=== PATIENT | female | born 1975 | race Caucasian/White ===

== ENCOUNTER 2016-11-10 16:47 | Inpatient (IN) | payer MEDICARE ==
[~2016-11-10] VITALS: Ht 154.9 cm; Wt 107.3 kg
--- NOTE | ~2016-11-10 | CON ---
[place], [place] REPORT OF CONSULTATION NAME: ZAKIA SWANSON UNIT #: [id number] ROOM: 503 DOCTOR: ALESSANDRO TAMAYO MD BIRTHDATE: [birth year] DOS: 11/14/2016 PULMONARY CONSULTATION EVALUATION AND MANAGEMENT REASON FOR CONSULTATION: Assess the patient for ongoing acute respiratory complaints. HISTORY OF PRESENT ILLNESS: This is a 41-year-old white female known to me with past history of uncomplicated severe persistent bronchial asthma, presented to the Emergency Room. The patient developed initially acute sore throat for the patient with shortness of breath occurring for the past couple of weeks. She has been assessed by the primary care physician and has been treated with amoxicillin and tapering dose of prednisone and failed to respond to the treatment. Symptoms have worsened significantly with onset of fever as well. The chest congestion of the patient has been noted to be progressively worse with nonproductive cough. She has been noted with symptoms of increased shortness of breath occurring with [id number] exertion as well as chest tightness and wheezing. She denies symptoms of hemoptysis. Denies symptoms of acute chest pain. REVIEW OF SYSTEMS: CONSTITUTIONAL SYMPTOMS: Fatigue and tiredness noted without symptoms of fever or chills. EYES: Denies any burning, redness, or tenderness. NECK, EARS, NOSE, THROAT SYMPTOMS: Denies sore throat, hoarseness, otalgia, postnasal drainage or epistaxis. CARDIOVASCULAR SYSTEM: Denies anginal pain, edema or pain of the lower extremities. GASTROINTESTINAL SYMPTOMS: Denies nausea, vomiting, diarrhea, abdominal pain, hematemesis, melena, or dysphagia. GENITOURINARY SYMPTOMS: No dysuria, suprapubic pain, hematuria. MUSCULOSKELETAL SYMPTOMS: History of cerebral palsy without any acute muscular problem for this patient was noted with pain. There was no joint pain. CENTRAL NERVOUS SYSTEM: History of cerebral palsy. The patient noted without symptoms of dizziness, headache or seizures. SKIN: Denies lesions or rashes. Remaining systems were reviewed with the patient and they were noted all negative. PAST MEDICAL HISTORY: 1. Uncomplicated severe persistent bronchial asthma under my treatment. 2. History of chronic severe obesity. 3. History of cerebral palsy with spastic paresis since . 4. History of stress incontinence. 5. History of chronic arthritis. 6. Gastroesophageal reflux. 7. Hypothyroidism. 8. Anxiety disorder and depression. 9. History of nephrolithiasis. [place], [place] REPORT OF CONSULTATION NAME: ZAKIA SWANSON UNIT #: [id number] ROOM: [facility] DOCTOR: ALESSANDRO TAMAYO MD BIRTHDATE: [birth year] PAST SURGICAL HISTORY: 1. Surgery of the neck in a patient with a history of cerebral palsy. 2. T and A. 3. Ablation of the cervix. 4. Tubal ligation. 5. . 6. Fiber bronchoscopy of the patient that was done for this patient on 01/28/2016. SOCIAL HISTORY: The patient is , has 2 children, nonsmoker lifetime. Denies any alcohol or illicit drug use. FAMILY HISTORY: Father is living, 57 years old without any known medical illnesses. Mother is also living without any known medical illnesses. MEDICATIONS: Current administered medications noted use of Myrbetriq, folic acid, Dulera, IV Solu-Medrol 40 mg b.i.d., Singulair, metoprolol tartrate, Lexapro, Wellbutrin, Lovenox for DVT prophylaxis, Synthroid 137 mcg daily, DuoNeb, Levaquin, and other p.r.n. medications administration. DRUG ALLERGY HISTORY: She was noted with no known drug allergies. PHYSICAL EXAMINATION: GENERAL: A 41-year-old female who has been currently noted without any acute distress, sitting on a bed. Height of 5 feet 1 inch, weight of 236 pounds, BMI 44.7. VITAL SIGNS: Shows normal temperature of the patient in the last 72 hours since admission, respiratory rate recorded between 16 to 20, heart rate of 56 to 68, blood pressure 150/82 to 170/86 in the past 12 hours. The pulse oxygen saturation of the patient recorded on room air to 2 liters nasal cannula is 93% to 97% saturation. HEENT: Chronic obesity. Head was atraumatic. Eyes anicteric. NECK: Supple. Oral mucosa moist. CARDIOVASCULAR SYSTEM: S1, S2 audible. LUNGS: Diffuse expiratory wheezing noted moderately without any crackles. ABDOMEN: Soft, obese, nontender. CENTRAL NERVOUS SYSTEM: History of cerebral palsy of the patient, but there were no gross focal neurologic deficits. Cranial nerves 2-12 intact. SKIN: No lesions or rashes. MUSCULOSKELETAL SYSTEM: No gross deformities. LABORATORY DATA: The patient's CBC on 11/02/2016 on admission was noted with a normal CBC for this patient. The lactic acid on 11/10/2016 is 2.6, a little elevated and followup lactic acid of the patient noted 2.4 on 11/10/2016. CMP of the patient that was done on 11/10/2016 of the patient shows BUN 12, creatinine 1.32, AST 41. Remaining LFTs were normal. CK-MB and troponin noted elevation of CPK at 368 with MB of 4.7 of the patient. The troponin of the patient remains normal. The CPK for this patient MB were elevated for the patient later on as well for additional 2 sets for this patient on a similar [place], [place] REPORT OF CONSULTATION NAME: ZAKIA SWANSON UNIT #: [id number] ROOM: [facility] DO[facility] [birth year] range for this patient on 11/11/2016. BMP repeated for the patient on 11/11/2016 shows BUN 11, creatinine 1.06, glucose 159. Blood culture, which were done on 11/10/2016 for the patient showed no bacterial growth. Urine culture reported no bacterial growth for the patient in final results taken on admission. BMP was noted completely normal for this patient this morning except potassium mildly decreased at 3.2. CBC this morning shows a normal CBC. The chest x-ray that was done for the patient was reviewed for this patient on admission of the patient shows no acute pulmonary infiltration, small area of atelectasis in the left lower lobe. Repeat chest x-ray of the patient was done 3 times for this patient shows more prominent infiltration in the left lower lobe consistent with acute pneumonia would be considered. IMPRESSION: 1. The patient who has been admitted to the hospital at this time and being managed for acute bacterial pneumonia, non-aspiration, most likely secondary to positive cocci of the patient in the left lower lobe with ongoing acute exacerbation of uncomplicated severe persistent bronchial asthma with only partial improvement occurred. 2. Chronic obesity with history of cerebral palsy as well. 3. History of gastroesophageal reflux. 4. Elevation in CPK, most likely related to current acute pulmonary ____ for this patient has been considered. 5. Mild acute kidney secondary to acute sepsis. 6. Acute sepsis as well secondary to acute bacterial pneumonia. PLAN OF TREATMENT: The patient will continued on Solu-Medrol, bronchodilator, antibiotic does not require to be changed. Mucinex will be added to the treatment of the patient to help mobilize secretions, use of flutter valve to help mobilize secretions. Bronchoscopy planned to be done in the morning for further assessment of the patient's nonresolving cough for the past 3 days since hospitalization. I will also obtain PA and lateral chest x-ray of the patient this morning to assess the progression of the current pneumonia for this patient and infiltration. All other supportive plan of management to be continued with use of the bronchodilators as well and other treatment plan of management. Supportive therapy, plan of management and other care. The kidney function of the patient has been noted normal at this time and no new intervention will be needed. [place], [place] REPORT OF CONSULTATION NAME: ZAKIA SWANSON UNIT #: [id number] ROOM: [facility] DOCTOR: ALESSANDRO TAMAYO MD BIRTHDATE: [birth year] ALESSANDRO MANSFIELD MD CM:CONSTR:REPORT OF CONSULTATION 1215 11/15/16 [id number] interface
--- NOTE | ~2016-11-10 | PROC NOTE ---
[place], [place] PROCEDURE NOTE NAME: ZAKIA SWANSON UNIT #: [id number] ROOM: 503 DOCTOR: SHYLA ANGUIANO MD,ALESSANDRO BIRTHDATE: [birth year] DOS: 11/15/2016 PROCEDURE: Bronchoscopy. PREOPERATIVE DIAGNOSES: Severe nonproductive cough for the patient with wheezing with history of bronchial asthma exacerbation with persistent respiratory symptoms nonresolving with current maximum medical therapy. POSTOPERATIVE DIAGNOSES: Removal of multiple plugs and mucus from the airways bilaterally. PROCEDURE DESCRIPTION: Informed consent obtained for the patient. The patient brought to the OR and placed in the supine position. Conscious sedation administered by the Anesthesia Department. After achieving appropriate sedation, airway introduced into the mouth. Bronchoscope advanced into the airway into laryngeal area. Epiglottis and vocal cords were seen. The vocal cord was noted yellowish in color moving symmetrically with movement. The bronchoscope advanced into the airway into laryngeal area. The epiglottis and vocal cords were seen. Bronchoscope advanced to the vocal cords of the patient without any difficulty. The trachea was noted with moderate amount of thick mucus secretions. The bronchoscope advanced to the vocal cord and tracheal lumen. All the secretions suctioned out from tracheal lumen. The ladonna was noted sharp. Right upper, right middle, right lower, left upper, lingular lower lobe bronchi were all examined. The bronchoscope advanced into all of the endobronchial subsegments of the patient bilaterally without any difficulty. All the secretions suctioned out with help of normal saline wash. Mucus plugs for the patient, which has been noted in the endobronchial tree, which were suctioned out with the help of normal saline wash without any difficulty. There were no endobronchial lesions noted. Postoperative findings were discussed with the patient's family members and the patient in detail after completion of the procedure. No changes in treatment at this time will be necessary. ALESSANDRO MANSFIELD MD CM:PROCNOTE:PROCEDURE NOTE [id number] ALESSANDRO ANGUIANO MD
--- NOTE | ~2016-11-10 | PR ---
[place], [place] PROGRESS NOTE NAME: ZAKIA SWANSON UNIT #: [id number] ROOM: 503 DOCTOR: SHYLA ANGUIANO MD,ALESSANDRO BIRTHDATE: [birth year] DOS: 11/15/2016 SUBJECTIVE: The patient seen and examined on 11/15/2016. She has been noted with similar symptoms of coughing and wheezing and shortness of breath. She is n.p.o. past midnight for bronchoscopy, which is planned for today. Denies symptoms of chest pain or any abdominal pain. OBJECTIVE: VITAL SIGNS: The morning vital signs for the patient shows a normal temperature, the respiratory rate of 20, heart rate of 60, blood pressure 183/93 to 152/92. HEENT: Examination shows no new change. NECK: Supple. CARDIOVASCULAR SYSTEM: S1, S2 audible. LUNGS: Moderate decreased breath sounds. The patient noted with moderate expiratory wheezing, no crackles. ABDOMEN: Soft, nontender. LABORATORY DATA: Creatinine on this morning was noted normal. IMPRESSION: Acute tracheobronchitis and exacerbation of chronic obstructive pulmonary disease, suspected, mucus impaction, history of chronic spastic paresis and cerebral palsy. PLAN OF TREATMENT: No changes in plan of management at this time. Continue the patient's current therapy as in progress. Further treatment changes will be done based on the progression of the illness. ALESSANDRO MANSFIELD MD CM:PNTRANS [phone] ALESSANDRO ANGUIANO MD 11/15/16 1010 interface
--- NOTE | ~2016-11-10 | PR ---
[place], [place] PROGRESS NOTE NAME: ZAKIA SWANSON UNIT #: [id number] ROOM: 503 DOCTOR: SHYLA ANGUIANO MD,ALESSANDRO BIRTHDATE: [birth year] DOS: 11/15/2016 PULMONARY FOLLOWUP SUBJECTIVE: She has been noted awake and alert at this time. The bronchoscopy done yesterday with reduction of respiratory symptom, coughing, wheezing, and shortness breath. Denies symptoms of chest pain, abdominal pain. OBJECTIVE: VITAL SIGNS: For the patient which have been recorded showed normal temperature, respiratory rate 20, heart rate of 50-56, blood pressure 150/76 this morning. The pulse oxygen saturation noted on 2 L nasal cannula was 90% saturation. HEENT: Examination shows head was atraumatic. Eyes nonicterus. NECK: Supple. CARDIOVASCULAR: S1, S2 audible. LUNGS: Show no crackles or rhonchi. Expiratory wheezing noted scattered in the lungs. ABDOMEN: Soft, nontender. Bowel sounds present. LABORATORY DATA: The gram stain in the bronchial washings show a few white blood cells, few epithelial cells, rare gram-positive cocci in pairs. Preliminary culture results for the patient was pending at this time. IMPRESSION: The patient with reduction and improvement in the respiratory symptoms after bronchoscopy for acute exacerbation of chronic obstructive pulmonary disease and acute exacerbation of bronchial asthma and tracheobronchitis significantly. The culture of the patient was pending for the bronchial washings. PLAN OF TREATMENT: Continue current dose of steroids. No changes need to be done. Consider for possible discharge of the patient in the morning on oral medications. Other supportive therapy, plan of management to be continued. Usual care. ALESSANDRO MANSFIELD MD CM:PNTRANS [phone] ALESSANDRO ANGUIANO MD 11/16/1656 interface
[~2016-11-10 16:47] MED LIST: 'XANAX1 MG PO; ADVAIR 250/501 EA INH; BACTRIM DS 8001 TA1 PO; CLARITIN10 MG PO; DARVOCET N 1001 TAB PO; DELTASONE20 M1 PO; DETROL LA4 MG PO; DEXILANT60 MG PO; DUONEB 3 MG/3 ML3 M1 INH; FUROSEMIDE40 MG PO; HYDROCODONE BIT1 T20 PO; IRON325 M1 PO; LEVAQUIN750 M1 PO; LEVOFLOXACIN500 MG PO; LEVOTHYROXIN0.125 M1 PO; LEVOTHYROXINE0.1 MG PO; LISINOPRIL5 MG PO; LOPRESSOR25 MG PO; Lopressor25 MG PO; MONTELUKAST SOD10 MG PO; MOTRIN800 MG PO; MUCINEX ER600 MG PO; NORCO 7.5-3251 EACH PO; OMEPRAZOLE DR20 MG PO; PERCOCET 325 MG1 TA2 PO; PREDNISONE10 MG PO; PRILOSEC20 M2 PO; PRILOSEC40 MG PO; PYRIDIUM200 M1 PO; SEPTRA DS 800 M1 TAB PO; TOPROL XL25 MG PO; VICODIN ES 7501 TA1 PO; XANAX XR1 MG PO; XANAX0.5 MG PO; ZITHROMAX250 MG PO
[2016-11-10 16:52] VITALS: BP 147/87
[2016-11-10] MEDS ORDERED: SUNMARK OMEPRAZ20 M1 PO (16:56)
[2016-11-10] MEDS ORDERED: MYRBETRIQ25 M1 PO (16:56)
[2016-11-10] MEDS ORDERED: METOPROLOL25 MG PO (16:57)
[2016-11-10] MEDS ORDERED: VICO75300 PO (16:57)
[2016-11-10] MEDS ORDERED: SYNTHROID0.137 MG PO (16:57)
[2016-11-10] MEDS ORDERED: MONTELUKAST SOD10 MG PO (16:58)
[2016-11-10] MEDS ORDERED: PROAIR HFA8.5 GM INH (16:58)
[2016-11-10] MEDS ORDERED: ADVAIR HFA 230/1 AER INH (16:58)
[2016-11-10] MEDS ORDERED: LEXAPRO20 MG PO (16:59)
[2016-11-10] MEDS ORDERED: XANAX1 MG PO (16:59)
[2016-11-10] MEDS ORDERED: WELLBUTRIN SR150 MG PO (16:59)
[2016-11-10 17:30] LABS: BASO # 0.1 10*3/uL (0.0-0.1); BASO % 0.9 % (0.0-1.0); EOS % 0.4 % (1.0-4.0); HEMATOCRIT 42.5 % (37.0-47.0); HEMOGLOBIN 14.7 g/dl (12.0-16.0); LYMPH # 0.7 10*3/uL (1.3-4.4); LYMPH % 12.9 % (27.0-41.0); MEAN CELL VOLUME 95.5 fl (81.0-99.0); MEAN CORPUSCULAR HGB CONC 34.6 g/dl (33.0-37.0); MEAN PLATELET VOLUME 9.5 fl (9.6-12.3); MONO # 0.6 10*3/uL (0.1-1.0); MONO % 10.2 % (3.0-9.0); NEUT # 4.2 10*3/uL (2.3-7.9); NEUT % 75.2 % (47.0-73.0); PLATELET COUNT AUTOMATED 298 10*3/uL (130-400); RED BLOOD COUNT 4.45 10*6/uL (4.10-5.10); RED CELL DISTRI WIDTH 13.3 % (0-14.5); WHITE BLOOD COUNT 5.6 10*3/uL (4.8-10.8)
[2016-11-10 17:47] LABS: ALKALINE PHOSPHATASE 76 U/L (45-117); BILIRUBIN, TOTAL 0.4 mg/dl (0.2-1.0); BUN 12 mg/dl (7-24); CARBON DIOXIDE 25 mmol/L (21-32); CHLORIDE 101 mmol/L (98-107); EST GLOM FILT AFRICAN AMERICAN 54 ml/min; GLUCOSE 96 mg/dL (65-99); SGOT/AST 41 IU/L (3-35); SGPT/ALT 46 U/L (12-78); SODIUM 140 mmol/L (136-145); TOTAL PROTEIN 7.8 gm/dL (6.4-8.2)
[2016-11-10 17:49] LABS: TROPONIN I < 0.015 ng/ml (<0.045)
[2016-11-10 19:26] LABS: LA>2 REFLEX 2 HR DRAW NOW
[2016-11-10 20:00] LABS: BILIRUBIN NEGATIVE (NEGATIVE); BLOOD 1+ (NEGATIVE); CLARITY CLOUDY (CLEAR); COLOR YELLOW (YELLOW); GLUCOSE NEGATIVE (NEGATIVE); KETONE NEGATIVE (NEGATIVE); LEUKO ESTERASE NEGATIVE (NEGATIVE); NITRITE NEGATIVE (NEGATIVE); PROTEIN 1+ (NEGATIVE); SPECIFIC GRAVITY 1.025 (1.005-1.030)
[2016-11-10 20:05] VITALS: BP 148/80
[2016-11-10 20:07] LABS: BACTERIA 2+; EPITHELIAL CELLS 20-25; URINE REFLEX COMMENT YES (NO); WBC 0-2 wbc/hpf (0-5)
[2016-11-10 21:38] LABS: LA>2 REFLEX 4 HR DRAW NOW
[2016-11-11] VITALS: BP 151/76
[2016-11-11 00:27] LABS: CKMB 4.7 ng/ml (0.5-3.6); CPK 368 U/L (26-192)
[2016-11-11 00:48] LABS: TROPONIN I < 0.015 ng/ml (<0.045)
[2016-11-11 04:00] VITALS: BP 118/63
[2016-11-11 06:29] LABS: HEMATOCRIT 38.4 % (37.0-47.0); LYMPH # 0.4 10*3/uL (1.3-4.4); LYMPH % 12.1 % (27.0-41.0); MEAN CELL VOLUME 97.2 fl (81.0-99.0); MEAN CORPUSCULAR HGB 32.9 pg (27.0-31.0); MEAN CORPUSCULAR HGB CONC 33.9 g/dl (33.0-37.0); MEAN PLATELET VOLUME 9.6 fl (9.6-12.3); MONO # 0.1 10*3/uL (0.1-1.0); MONO % 4.7 % (3.0-9.0); NEUT # 2.5 10*3/uL (2.3-7.9); NEUT % 82.9 % (47.0-73.0); PLATELET COUNT AUTOMATED 269 10*3/uL (130-400); RED BLOOD COUNT 3.95 10*6/uL (4.10-5.10); RED CELL DISTRI WIDTH 13.5 % (0-14.5)
[2016-11-11 06:45] LABS: CPK 290 U/L (26-192)
[2016-11-11 06:46] LABS: TROPONIN I < 0.015 ng/ml (<0.045)
[2016-11-11 06:49] LABS: HEMOGLOBIN A1c 4.7 % (4.8-5.6)
[2016-11-11 07:06] LABS: BUN 11 mg/dl (7-24); CARBON DIOXIDE 22 mmol/L (21-32); CHLORIDE 105 mmol/L (98-107); CHOLESTEROL 155 mg/dL (<200); EST GLOM FILT AFRICAN AMERICAN > 60 ml/min; GLUCOSE 159 mg/dL (65-99); HDL CHOLESTEROL 35 mg/dl (40-60); LDL CHOLESTEROL 79 mg/dL (9-159); POTASSIUM 3.9 mmol/L (3.5-5.1); SODIUM 140 mmol/L (136-145); TRIGLYCERIDES 207 mg/dl (<150); VLDL CHOLESTEROL 41 mg/dL (6-40)
[2016-11-11 07:12] LABS: THYROID STIM HORMONE (HS) 0.783 uIU/ml (0.358-4.75)
[2016-11-11 07:25] LABS: PROTHROMBIN TIME 10.8 SECONDS (9.0-12.4)
[2016-11-11 07:27] LABS: FOLIC ACID 3.63 ng/mL (>5.38)
[2016-11-11 08:00] VITALS: BP 152/87
[2016-11-11 12:00] VITALS: BP 141/82
[2016-11-11 12:31] LABS: CPK 268 U/L (26-192); TROPONIN I < 0.015 ng/ml (<0.045)
[2016-11-11 12:33] LABS: CKMB 5.1 ng/ml (0.5-3.6)
[2016-11-11 16:00] VITALS: BP 134/79
[2016-11-11 20:00] VITALS: BP 127/66
[2016-11-12] VITALS: BP 132/63
[2016-11-12 08:00] VITALS: BP 160/90
[2016-11-12 12:00] VITALS: BP 147/82
[2016-11-12 16:00] VITALS: BP 154/92
[2016-11-12 20:00] VITALS: BP 135/82
[2016-11-13] VITALS: BP 154/82
[2016-11-13 08:00] VITALS: BP 171/89
[2016-11-13 12:00] VITALS: BP 124/70
[2016-11-13 16:00] VITALS: BP 160/92; BP 162/80
[2016-11-13 20:00] VITALS: BP 170/82
[2016-11-14] VITALS: BP 178/86; BP 183/90
[2016-11-14 06:07] LABS: HEMATOCRIT 40.7 % (37.0-47.0); HEMOGLOBIN 13.4 g/dl (12.0-16.0); MEAN CELL VOLUME 98.1 fl (81.0-99.0); MEAN CORPUSCULAR HGB 32.3 pg (27.0-31.0); MEAN CORPUSCULAR HGB CONC 32.9 g/dl (33.0-37.0); MEAN PLATELET VOLUME 9.8 fl (9.6-12.3); PLATELET COUNT AUTOMATED 288 10*3/uL (130-400); RED BLOOD COUNT 4.15 10*6/uL (4.10-5.10); RED CELL DISTRI WIDTH 13.2 % (0-14.5); WHITE BLOOD COUNT 8.1 10*3/uL (4.8-10.8)
[2016-11-14 06:25] LABS: BUN 13 mg/dl (7-24); CARBON DIOXIDE 30 mmol/L (21-32); CHLORIDE 102 mmol/L (98-107); EST GLOM FILT AFRICAN AMERICAN > 60 ml/min; GLUCOSE 98 mg/dL (65-99); POTASSIUM 3.2 mmol/L (3.5-5.1); SODIUM 143 mmol/L (136-145)
[2016-11-14 07:42] LABS: ATYPICAL LYMPHS 9 % (0-0); LYMPHOCYTE # 1.9 10*3/uL (1.3-4.4); MONOCYTE # 0.6 10*3/uL (0.1-1.0); NEUTROPHIL # 5.6 10*3/uL (2.3-7.9); NEUTROPHILS 69 % (47-73); PLATELET SUFFICIENCY NORMAL (NORMAL); TOTAL CELLS COUNTED 100 #CELLS
[2016-11-14 08:00] VITALS: BP 158/82
[2016-11-14 12:00] VITALS: BP 156/78
[2016-11-14 14:00] VITALS: BP 148/71
[2016-11-14 20:00] VITALS: BP 150/79
[2016-11-15] VITALS (7 sets, daily range): BP systolic 99–186; BP diastolic 54–93
[2016-11-15 06:10] LABS: EST GLOM FILT AFRICAN AMERICAN > 60 ml/min
[2016-11-16] VITALS: BP 132/75
[2016-11-16 08:00] VITALS: BP 150/76
[2016-11-16 12:00] VITALS: BP 132/78
[2016-11-16] MEDS ORDERED: LEVAQUIN750 M1 PO (13:54)
[2016-11-16] MEDS ORDERED: NYSTATIN100000 U/M PO (13:54)
[2016-11-16] MEDS ORDERED: PREDNISONE10 MG PO (13:54)
[2016-11-16] MEDS ORDERED: NATURE'S BLEND F1 MG PO (13:54)
[2016-11-16 14:07] LABS: ACID FAST SPEC PROCESSING Concentration (.)
== END 2016-11-16 14:39 | disposition home or self-care (01) | DRG 871 ==
LOC: ED 16:47 → EDHOLD 18:13 → 5E 18:13
PROVIDERS: Internal Medicine; Internal Medicine Critical Care Medicine; Registered Nurse
PROC: 0BC98ZZ Extirpation of Matter from Lingula Bronchus, Via Natural or Artificial Opening Endoscopic (ICD-10-PCS; principal; 2016-11-15)
PROC: 0BC48ZZ Extirpation of Matter from Right Upper Lobe Bronchus, Via Natural or Artificial Opening Endoscopic (ICD-10-PCS; principal; 2016-11-15)
PROC: 0BCB8ZZ Extirpation of Matter from Left Lower Lobe Bronchus, Via Natural or Artificial Opening Endoscopic (ICD-10-PCS; principal; 2016-11-15)
PROC: 0BC28ZZ Extirpation of Matter from Carina, Via Natural or Artificial Opening Endoscopic (ICD-10-PCS; principal; 2016-11-15)
PROC: 0BC68ZZ Extirpation of Matter from Right Lower Lobe Bronchus, Via Natural or Artificial Opening Endoscopic (ICD-10-PCS; principal; 2016-11-15)
PROC: 0BC88ZZ Extirpation of Matter from Left Upper Lobe Bronchus, Via Natural or Artificial Opening Endoscopic (ICD-10-PCS; principal; 2016-11-15)
PROC: 0BC58ZZ Extirpation of Matter from Right Middle Lobe Bronchus, Via Natural or Artificial Opening Endoscopic (ICD-10-PCS; principal; 2016-11-15)
DX: A41.9 Sepsis, unspecified organism (principal); N17.0 Acute kidney failure with tubular necrosis; J96.01 Acute respiratory failure with hypoxia; J15.9 Unspecified bacterial pneumonia; E87.2 Acidosis; J44.1 Chronic obstructive pulmonary disease with (acute) exacerbation; J44.0 Chronic obstructive pulmonary disease with (acute) lower respiratory infection; Z68.41 Body mass index [BMI] 40.0-44.9, adult; E66.01 Morbid (severe) obesity due to excess calories; G80.9 Cerebral palsy, unspecified; F41.9 Anxiety disorder, unspecified; E03.9 Hypothyroidism, unspecified; E78.5 Hyperlipidemia, unspecified; R73.9 Hyperglycemia, unspecified; J20.9 Acute bronchitis, unspecified; K21.9 Gastro-esophageal reflux disease without esophagitis; F32.9 Major depressive disorder, single episode, unspecified; M19.90 Unspecified osteoarthritis, unspecified site; Z98.51 Tubal ligation status; Z82.61 Family history of arthritis; Z82.0 Family history of epilepsy and other diseases of the nervous system; Z88.8 Allergy status to other drugs, medicaments and biological substances; Z79.1 Long term (current) use of non-steroidal anti-inflammatories (NSAID); Z79.51 Long term (current) use of inhaled steroids; Z79.899 Other long term (current) drug therapy

== ENCOUNTER 2017-04-29 00:16 | Emergency (ER) | payer MEDICARE ==
[~2017-04-29] VITALS: Ht 154.9 cm; Wt 108.9 kg
[~2017-04-29 00:16] MED LIST changes: +ADVAIR HFA 230/1 AER INH; +LEXAPRO20 MG PO; +METOPROLOL25 MG PO; +MYRBETRIQ25 M1 PO; +NATURE'S BLEND F1 MG PO; +NYSTATIN100000 U/M PO; +PROAIR HFA8.5 GM INH; +SUNMARK OMEPRAZ20 M1 PO; +SYNTHROID0.137 MG PO; +VICO75300 PO; +WELLBUTRIN SR150 MG PO; +XANAX1 MG PO
[2017-04-29 00:20] VITALS: BP 172/94
[2017-04-29 00:33] LABS: BILIRUBIN 1+ (NEGATIVE); BLOOD 3+ (NEGATIVE); CLARITY CLOUDY (CLEAR); COLOR YELLOW (YELLOW); GLUCOSE NEGATIVE (NEGATIVE); KETONE NEGATIVE (NEGATIVE); LEUKO ESTERASE 2+ (NEGATIVE); NITRITE POSITIVE (NEGATIVE); SPECIFIC GRAVITY 1.025 (1.005-1.030)
[2017-04-29 00:51] LABS: BACTERIA 3+; EPITHELIAL CELLS TNTC; RBC TNTC rbc/hpf (0-2); WBC 41-50 wbc/hpf (0-5)
== END 2017-04-29 01:43 | disposition home or self-care (01) ==
LOC: ED 00:16
PROVIDERS: Nurse Practitioner Family
DX: N39.0 Urinary tract infection, site not specified (principal); E03.9 Hypothyroidism, unspecified; Z91.011 Allergy to milk products; Z91.018 Allergy to other foods; Z79.899 Other long term (current) drug therapy

== ENCOUNTER → 2017-05-15 | Outpatient (CLI) | payer MEDICARE ==
[2017-05-15 12:28] LABS: BILIRUBIN NEGATIVE (NEGATIVE); BLOOD 1+ (NEGATIVE); CLARITY SL CLOUDY (CLEAR); COLOR YELLOW (YELLOW); GLUCOSE NEGATIVE (NEGATIVE); KETONE NEGATIVE (NEGATIVE); LEUKO ESTERASE NEGATIVE (NEGATIVE); NITRITE NEGATIVE (NEGATIVE); SPECIFIC GRAVITY 1.025 (1.005-1.030); UROBILINOGEN 0.2 E.U./dl (0.2-1.0)
[2017-05-15 12:43] LABS: BACTERIA TRACE; WBC 16-20 wbc/hpf (0-5)
[2017-05-15 13:01] LABS: ALBUMIN 3.6 gm/dl (3.1-4.5); ALKALINE PHOSPHATASE 66 U/L (45-117); BUN 18 mg/dl (7-24); CHLORIDE 108 mmol/L (98-107); CREATININE 1.16 mg/dL (0.55-1.02); POTASSIUM 4.1 mmol/L (3.5-5.1); SGOT/AST 18 IU/L (3-35); SGPT/ALT 25 U/L (12-78); SODIUM 141 mmol/L (136-145); T3 UPTAKE 33 % (31-39); THYROXINE (T4) TOTAL 10.2 ug/dl (4.8-13.9); TOTAL PROTEIN 6.9 gm/dL (6.4-8.2)
== END | disposition home or self-care (01) ==
LOC: LAB 11:41
PROVIDERS: Urology
DX: N20.0 Calculus of kidney (principal); R94.6 Abnormal results of thyroid function studies

== ENCOUNTER → 2017-05-20 | Outpatient (CLI) | payer MEDICARE | END | disposition home or self-care (01) | LOC: LAB 17:04 | PROVIDERS: Family Medicine | DX: N20.0 Calculus of kidney (principal) ==

== ENCOUNTER 2017-07-22 19:42 | Emergency (ER) | payer MEDICARE ==
[~2017-07-22] VITALS: Ht 154.9 cm; Wt 90.7 kg
[2017-07-22 20:20] VITALS: BP 174/88
[2017-07-22 20:34] LABS: BILIRUBIN NEGATIVE (NEGATIVE); BLOOD 3+ (NEGATIVE); CLARITY CLOUDY (CLEAR); COLOR RED (YELLOW); GLUCOSE NEGATIVE (NEGATIVE); KETONE NEGATIVE (NEGATIVE); NITRITE POSITIVE (NEGATIVE)
[2017-07-22 20:51] LABS: LEUKO ESTERASE 2+ (NEGATIVE); RBC TNTC rbc/hpf (0-2)
[2017-07-22] MEDS ORDERED: AMINOPHYLLIN200 MG PO (21:43)
[2017-07-22] MEDS ORDERED: PYRIDIUM200 M1 PO (21:43)
== END 2017-07-22 21:56 | disposition home or self-care (01) ==
LOC: ED 19:42
PROVIDERS: Physician Assistant
DX: N39.0 Urinary tract infection, site not specified (principal); R31.9 Hematuria, unspecified; Z91.02 Food additives allergy status; Z79.899 Other long term (current) drug therapy

== ENCOUNTER 2017-10-21 19:16 | Emergency (ER) | payer MEDICARE ==
[~2017-10-21] VITALS: Ht 154.9 cm; Wt 112.5 kg
[~2017-10-21 19:16] MED LIST changes: +AMINOPHYLLIN200 MG PO
[2017-10-21 19:22] VITALS: BP 161/104
[2017-10-21 19:40] LABS: BILIRUBIN NEGATIVE (NEGATIVE); BLOOD 3+ (NEGATIVE); CLARITY CLOUDY (CLEAR); COLOR YELLOW (YELLOW); GLUCOSE NEGATIVE (NEGATIVE); KETONE NEGATIVE (NEGATIVE); LEUKO ESTERASE TRACE (NEGATIVE); NITRITE NEGATIVE (NEGATIVE); PH 6.5 (5.0-9.0); SPECIFIC GRAVITY 1.015 (1.005-1.030); UROBILINOGEN 0.2 E.U./dl (0.2-1.0)
[2017-10-21 19:48] LABS: BACTERIA 2+; EPITHELIAL CELLS TNTC; MUCOUS TRACE; WBC 0-2 wbc/hpf (0-5)
[2017-10-21 20:52] LABS: BASO # 0.1 10*3/uL (0.0-0.1); BASO % 0.6 % (0.0-1.0); EOS # 0.2 10*3/uL (0.0-0.4); EOS % 2.7 % (1.0-4.0); HEMATOCRIT 39.7 % (37.0-47.0); HEMOGLOBIN 13.5 g/dl (12.0-16.0); LYMPH # 2.1 10*3/uL (1.3-4.4); LYMPH % 25.3 % (27.0-41.0); MEAN CELL VOLUME 96.8 fl (81.0-99.0); MEAN CORPUSCULAR HGB 32.9 pg (27.0-31.0); MEAN PLATELET VOLUME 9.6 fl (9.6-12.3); MONO # 0.5 10*3/uL (0.1-1.0); MONO % 6.4 % (3.0-9.0); NEUT # 5.4 10*3/uL (2.3-7.9); NEUT % 64.9 % (47.0-73.0); PLATELET COUNT AUTOMATED 339 10*3/uL (130-400); RED CELL DISTRI WIDTH 12.8 % (0-14.5); WHITE BLOOD COUNT 8.4 10*3/uL (4.8-10.8)
[2017-10-21 21:06] LABS: ALBUMIN 3.9 gm/dl (3.1-4.5); ALKALINE PHOSPHATASE 71 U/L (45-117); BUN 10 mg/dl (7-24); CHLORIDE 104 mmol/L (98-107); CREATININE 1.11 mg/dL (0.55-1.02); SGOT/AST 23 IU/L (3-35); SGPT/ALT 32 U/L (12-78); SODIUM 139 mmol/L (136-145); TOTAL PROTEIN 7.1 gm/dL (6.4-8.2)
[2017-10-21] MEDS ORDERED: AMINOPHYLLIN200 MG PO (22:56)
== END 2017-10-21 23:13 | disposition home or self-care (01) ==
LOC: ED 19:16
PROVIDERS: Physician Assistant
DX: N39.0 Urinary tract infection, site not specified (principal); M54.5 Low back pain; Z88.8 Allergy status to other drugs, medicaments and biological substances

== ENCOUNTER → 2017-11-12 | Outpatient (CLI) | payer MEDICARE ==
[2017-11-12 15:42] LABS: BASO # 0.1 10*3/uL (0.0-0.1); BASO % 0.6 % (0.0-1.0); EOS # 0.3 10*3/uL (0.0-0.4); EOS % 3.1 % (1.0-4.0); HEMATOCRIT 40.9 % (37.0-47.0); HEMOGLOBIN 13.9 g/dl (12.0-16.0); LYMPH # 3.5 10*3/uL (1.3-4.4); LYMPH % 32.5 % (27.0-41.0); MEAN CELL VOLUME 97.1 fl (81.0-99.0); MEAN PLATELET VOLUME 9.6 fl (9.6-12.3); MONO # 0.9 10*3/uL (0.1-1.0); MONO % 8.1 % (3.0-9.0); NEUT % 55.4 % (47.0-73.0); PLATELET COUNT AUTOMATED 295 10*3/uL (130-400); RED BLOOD COUNT 4.21 10*6/uL (4.10-5.10); RED CELL DISTRI WIDTH 12.9 % (0-14.5); WHITE BLOOD COUNT 10.8 10*3/uL (4.8-10.8)
[2017-11-12 15:47] LABS: BILIRUBIN NEGATIVE (NEGATIVE); BLOOD NEGATIVE (NEGATIVE); CLARITY SL CLOUDY (CLEAR); COLOR YELLOW (YELLOW); GLUCOSE NEGATIVE (NEGATIVE); KETONE NEGATIVE (NEGATIVE); LEUKO ESTERASE NEGATIVE (NEGATIVE); NITRITE NEGATIVE (NEGATIVE); PH 6.5 (5.0-9.0); UROBILINOGEN 0.2 E.U./dl (0.2-1.0)
[2017-11-12 16:05] LABS: ALBUMIN 3.9 gm/dl (3.1-4.5); ALKALINE PHOSPHATASE 71 U/L (45-117); BUN 13 mg/dl (7-24); CHLORIDE 104 mmol/L (98-107); CREATININE 1.16 mg/dL (0.55-1.02); POTASSIUM 3.5 mmol/L (3.5-5.1); SGOT/AST 24 IU/L (3-35); SGPT/ALT 33 U/L (12-78); SODIUM 138 mmol/L (136-145); T3 UPTAKE 33 % (31-39); THYROXINE (T4) TOTAL 8.3 ug/dl (4.8-13.9); TOTAL PROTEIN 7.5 gm/dL (6.4-8.2)
[2017-11-12 16:09] LABS: BACTERIA 2+
== END | disposition home or self-care (01) ==
LOC: US 10-25 13:00 → LAB 14:59 → US 15:00
PROVIDERS: Urology
DX: N83.201 Unspecified ovarian cyst, right side (principal); N20.0 Calculus of kidney; Z79.899 Other long term (current) drug therapy

== ENCOUNTER 2018-06-08 15:26 | Inpatient (IN) | payer MEDICARE ==
[~2018-06-08] VITALS: Ht 154.9 cm; Wt 108.1 kg
--- NOTE | ~2018-06-08 | EKG ---
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
[~2018-06-08 15:26] MED LIST changes: -SYNTHROID0.137 MG PO; +Synthroid,Lev150 MCG PO
[2018-06-08 15:28] VITALS: BP 198/105
[2018-06-08 16:18] LABS: BILIRUBIN 2+ (NEGATIVE); BLOOD 3+ (NEGATIVE); CLARITY CLOUDY (CLEAR); COLOR YELLOW (YELLOW); GLUCOSE TRACE (NEGATIVE); KETONE TRACE (NEGATIVE); LEUKO ESTERASE 2+ (NEGATIVE); NITRITE POSITIVE (NEGATIVE); PH 6.5 (5.0-9.0); SPECIFIC GRAVITY 1.025 (1.005-1.030)
[2018-06-08 16:25] LABS: RBC TNTC rbc/hpf (0-2)
[2018-06-08 16:33] LABS: BASO # 0.1 10*3/uL (0.0-0.1); BASO % 0.7 % (0.0-1.0); EOS # 0.2 10*3/uL (0.0-0.4); EOS % 2.6 % (1.0-4.0); HEMOGLOBIN 13.6 g/dl (12.0-16.0); LYMPH # 1.3 10*3/uL (1.3-4.4); LYMPH % 18.8 % (27.0-41.0); MEAN CELL VOLUME 97.3 fl (81.0-99.0); MEAN CORPUSCULAR HGB 33.1 pg (27.0-31.0); MEAN PLATELET VOLUME 9.4 fl (9.6-12.3); MONO # 0.5 10*3/uL (0.1-1.0); MONO % 7.1 % (3.0-9.0); NEUT # 4.8 10*3/uL (2.3-7.9); NEUT % 70.7 % (47.0-73.0); PLATELET COUNT AUTOMATED 311 10*3/uL (130-400); RED BLOOD COUNT 4.11 10*6/uL (4.10-5.10); RED CELL DISTRI WIDTH 13.3 % (0-14.5); WHITE BLOOD COUNT 6.8 10*3/uL (4.8-10.8)
[2018-06-08 16:44] LABS: ACT PARTIAL THROMBO TIME 24.3 SECONDS (20.8-31.5)
[2018-06-08 16:49] LABS: ALBUMIN 3.5 gm/dl (3.1-4.5); ALKALINE PHOSPHATASE 102 U/L (45-117); BETA-HCG, QUANT < 1.0 mIU/mL (1-3); BUN 9 mg/dl (7-24); CHLORIDE 106 mmol/L (98-107); CREATININE 1.09 mg/dL (0.55-1.02); LIPASE 56 U/L (73-393); POTASSIUM 3.5 mmol/L (3.5-5.1); SGOT/AST 35 IU/L (3-35); SGPT/ALT 38 U/L (12-78); SODIUM 141 mmol/L (136-145); TOTAL PROTEIN 6.9 gm/dL (6.4-8.2); TROPONIN I < 0.015 ng/ml (<0.045)
[2018-06-08 18:55] VITALS: BP 160/75
[2018-06-08 20:00] VITALS: BP 161/75
[2018-06-09] VITALS: BP 137/74
[2018-06-09 06:34] LABS: BASO # 0.1 10*3/uL (0.0-0.1); BASO % 0.6 % (0.0-1.0); EOS # 0.3 10*3/uL (0.0-0.4); HEMATOCRIT 37.4 % (37.0-47.0); HEMOGLOBIN 12.4 g/dl (12.0-16.0); LYMPH # 2.2 10*3/uL (1.3-4.4); LYMPH % 26.4 % (27.0-41.0); MEAN CELL VOLUME 98.9 fl (81.0-99.0); MEAN CORPUSCULAR HGB 32.8 pg (27.0-31.0); MEAN CORPUSCULAR HGB CONC 33.2 g/dl (33.0-37.0); MEAN PLATELET VOLUME 9.9 fl (9.6-12.3); MONO # 0.7 10*3/uL (0.1-1.0); MONO % 7.7 % (3.0-9.0); NEUT # 5.2 10*3/uL (2.3-7.9); NEUT % 62.1 % (47.0-73.0); PLATELET COUNT AUTOMATED 286 10*3/uL (130-400); RED BLOOD COUNT 3.78 10*6/uL (4.10-5.10); RED CELL DISTRI WIDTH 13.4 % (0-14.5); WHITE BLOOD COUNT 8.4 10*3/uL (4.8-10.8)
[2018-06-09 07:13] LABS: ALBUMIN 3.2 gm/dl (3.1-4.5); BUN 11 mg/dl (7-24); CHLORIDE 106 mmol/L (98-107); CHOLESTEROL 160 mg/dL (<200); CREATININE 1.12 mg/dL (0.55-1.02); PHOSPHOROUS 3.1 mg/dL (2.5-4.9); POTASSIUM 3.5 mmol/L (3.5-5.1); SGOT/AST 27 IU/L (3-35); SGPT/ALT 34 U/L (12-78); SODIUM 142 mmol/L (136-145); TOTAL PROTEIN 6.2 gm/dL (6.4-8.2); TRIGLYCERIDES 204 mg/dl (<150); VLDL CHOLESTEROL 41 mg/dL (6-40)
[2018-06-09 07:20] LABS: ALKALINE PHOSPHATASE 89 U/L (45-117); FREE T4 1.06 ng/dl (0.76-1.46); HDL CHOLESTEROL 39 mg/dl (40-60); LDL CHOLESTEROL 80 mg/dL (9-159)
[2018-06-09 08:00] VITALS: BP 147/79
[2018-06-09 12:00] VITALS: BP 145/73
[2018-06-09 16:00] VITALS: BP 143/78
[2018-06-09 20:00] VITALS: BP 142/69
[2018-06-10] VITALS: BP 145/69
[2018-06-10 06:30] LABS: BASO # 0.1 10*3/uL (0.0-0.1); BASO % 0.9 % (0.0-1.0); EOS # 0.2 10*3/uL (0.0-0.4); HEMATOCRIT 39.8 % (37.0-47.0); HEMOGLOBIN 13.2 g/dl (12.0-16.0); LYMPH # 2.8 10*3/uL (1.3-4.4); LYMPH % 35.5 % (27.0-41.0); MEAN CELL VOLUME 98.8 fl (81.0-99.0); MEAN CORPUSCULAR HGB 32.8 pg (27.0-31.0); MEAN CORPUSCULAR HGB CONC 33.2 g/dl (33.0-37.0); MEAN PLATELET VOLUME 9.8 fl (9.6-12.3); MONO # 0.6 10*3/uL (0.1-1.0); MONO % 7.5 % (3.0-9.0); NEUT # 4.1 10*3/uL (2.3-7.9); PLATELET COUNT AUTOMATED 343 10*3/uL (130-400); RED BLOOD COUNT 4.03 10*6/uL (4.10-5.10); RED CELL DISTRI WIDTH 13.3 % (0-14.5); WHITE BLOOD COUNT 7.8 10*3/uL (4.8-10.8)
[2018-06-10 06:58] LABS: BUN 10 mg/dl (7-24); CHLORIDE 107 mmol/L (98-107); CREATININE 0.96 mg/dL (0.55-1.02); POTASSIUM 3.5 mmol/L (3.5-5.1); SODIUM 143 mmol/L (136-145)
[2018-06-10 08:00] VITALS: BP 152/87
[2018-06-10 12:00] VITALS: BP 150/85
[2018-06-10 16:00] VITALS: BP 160/90
[2018-06-10 20:00] VITALS: BP 156/85
[2018-06-11] VITALS: BP 139/74; BP 156/85
[2018-06-11 06:08] LABS: BASO # 0.1 10*3/uL (0.0-0.1); BASO % 0.7 % (0.0-1.0); EOS # 0.2 10*3/uL (0.0-0.4); EOS % 2.7 % (1.0-4.0); HEMATOCRIT 38.2 % (37.0-47.0); HEMOGLOBIN 12.5 g/dl (12.0-16.0); LYMPH # 2.8 10*3/uL (1.3-4.4); LYMPH % 32.9 % (27.0-41.0); MEAN CELL VOLUME 100.3 fl (81.0-99.0); MEAN CORPUSCULAR HGB 32.8 pg (27.0-31.0); MEAN CORPUSCULAR HGB CONC 32.7 g/dl (33.0-37.0); MEAN PLATELET VOLUME 9.4 fl (9.6-12.3); MONO # 0.6 10*3/uL (0.1-1.0); MONO % 6.9 % (3.0-9.0); NEUT # 4.8 10*3/uL (2.3-7.9); NEUT % 56.6 % (47.0-73.0); PLATELET COUNT AUTOMATED 312 10*3/uL (130-400); RED BLOOD COUNT 3.81 10*6/uL (4.10-5.10); RED CELL DISTRI WIDTH 13.4 % (0-14.5); WHITE BLOOD COUNT 8.5 10*3/uL (4.8-10.8)
[2018-06-11 06:33] LABS: BUN 12 mg/dl (7-24); CHLORIDE 104 mmol/L (98-107); CREATININE 0.95 mg/dL (0.55-1.02); POTASSIUM 3.5 mmol/L (3.5-5.1); SODIUM 140 mmol/L (136-145)
[2018-06-11 08:00] VITALS: BP 137/66
[2018-06-11 12:00] VITALS: BP 148/84
[2018-06-11 16:00] VITALS: BP 145/82
[2018-06-11 20:00] VITALS: BP 145/69
[2018-06-12] VITALS: BP 144/83
[2018-06-12 06:37] LABS: BUN 14 mg/dl (7-24); CHLORIDE 102 mmol/L (98-107); CREATININE 0.88 mg/dL (0.55-1.02); POTASSIUM 3.7 mmol/L (3.5-5.1); SODIUM 138 mmol/L (136-145)
[2018-06-12 08:00] VITALS: BP 140/74
[2018-06-12 12:00] VITALS: BP 132/68
[2018-06-12 16:00] VITALS: BP 131/62
[2018-06-12 20:00] VITALS: BP 132/73
[2018-06-13] VITALS: BP 132/78
[2018-06-13 06:54] LABS: BASO % 0.6 % (0.0-1.0); EOS # 0.2 10*3/uL (0.0-0.4); EOS % 2.7 % (1.0-4.0); HEMATOCRIT 38.5 % (37.0-47.0); HEMOGLOBIN 12.3 g/dl (12.0-16.0); LYMPH # 2.1 10*3/uL (1.3-4.4); LYMPH % 32.3 % (27.0-41.0); MEAN CORPUSCULAR HGB 32.3 pg (27.0-31.0); MEAN CORPUSCULAR HGB CONC 31.9 g/dl (33.0-37.0); MONO # 0.8 10*3/uL (0.1-1.0); MONO % 11.4 % (3.0-9.0); NEUT # 3.5 10*3/uL (2.3-7.9); NEUT % 52.5 % (47.0-73.0); PLATELET COUNT AUTOMATED 291 10*3/uL (130-400); RED BLOOD COUNT 3.81 10*6/uL (4.10-5.10); RED CELL DISTRI WIDTH 13.7 % (0-14.5); WHITE BLOOD COUNT 6.6 10*3/uL (4.8-10.8)
[2018-06-13 07:19] LABS: BUN 13 mg/dl (7-24); CHLORIDE 104 mmol/L (98-107); CREATININE 0.91 mg/dL (0.55-1.02); SODIUM 141 mmol/L (136-145)
[2018-06-13 08:00] VITALS: BP 129/67
[2018-06-13] MEDS ORDERED: LASIX20 MG PO (11:19)
[2018-06-13] MEDS ORDERED: CIPRO250 MG PO (11:19)
[2018-06-13 12:00] VITALS: BP 136/62
[2018-07-30] MEDS ORDERED: LEVOFLOXACIN500 MG PO (19:22)
[2018-07-30] MEDS ORDERED: PREDNISONE10 MG PO (19:22)
== END 2018-06-13 15:15 | disposition home or self-care (01) | DRG 570 ==
LOC: ED 15:26 → 5E 17:37 → EDHOLD 17:37 → 5E 17:54
PROVIDERS: Emergency Medicine; Family Medicine; Internal Medicine
PROC: 0JBN0ZZ Excision of Right Lower Leg Subcutaneous Tissue and Fascia, Open Approach (ICD-10-PCS; principal; 2018-06-11)
DX: L03.115 Cellulitis of right lower limb (principal); N17.0 Acute kidney failure with tubular necrosis; N39.0 Urinary tract infection, site not specified; I16.1 Hypertensive emergency; E87.2 Acidosis; Z68.41 Body mass index [BMI] 40.0-44.9, adult; I50.32 Chronic diastolic (congestive) heart failure; L97.922 Non-pressure chronic ulcer of unspecified part of left lower leg with fat layer exposed; L97.911 Non-pressure chronic ulcer of unspecified part of right lower leg limited to breakdown of skin; L97.212 Non-pressure chronic ulcer of right calf with fat layer exposed; I13.0 Hypertensive heart and chronic kidney disease with heart failure and stage 1 through stage 4 chronic kidney disease, or unspecified chronic kidney disease; L97.912 Non-pressure chronic ulcer of unspecified part of right lower leg with fat layer exposed; E66.01 Morbid (severe) obesity due to excess calories; R06.09 Other forms of dyspnea; I45.81 Long QT syndrome; R31.9 Hematuria, unspecified; N18.3 Chronic kidney disease, stage 3 (moderate); I16.0 Hypertensive urgency; B96.20 Unspecified Escherichia coli [E. coli] as the cause of diseases classified elsewhere; K76.0 Fatty (change of) liver, not elsewhere classified; G80.9 Cerebral palsy, unspecified; E03.9 Hypothyroidism, unspecified; Z98.891 History of uterine scar from previous surgery; Z82.61 Family history of arthritis; Z82.0 Family history of epilepsy and other diseases of the nervous system; Z91.018 Allergy to other foods; Z82.49 Family history of ischemic heart disease and other diseases of the circulatory system; Z79.51 Long term (current) use of inhaled steroids; Z79.899 Other long term (current) drug therapy; Z88.8 Allergy status to other drugs, medicaments and biological substances

== ENCOUNTER → 2018-06-17 | Outpatient (CLI) | payer MEDICARE ==
[~2018-06-17] MED LIST changes: +CIPRO250 MG PO; +LASIX20 MG PO
== END | disposition home or self-care (01) ==
LOC: WOUNDCARE 03:41
DX: I87.311 Chronic venous hypertension (idiopathic) with ulcer of right lower extremity (principal); L97.218 Non-pressure chronic ulcer of right calf with other specified severity; I11.0 Hypertensive heart disease with heart failure; I50.30 Unspecified diastolic (congestive) heart failure; G80.9 Cerebral palsy, unspecified; E78.5 Hyperlipidemia, unspecified; E03.9 Hypothyroidism, unspecified; E66.01 Morbid (severe) obesity due to excess calories; F41.9 Anxiety disorder, unspecified; Z68.42 Body mass index [BMI] 45.0-49.9, adult

== ENCOUNTER → 2018-06-30 | Outpatient (CLI) | payer MEDICARE | END | disposition home or self-care (01) | LOC: WOUNDCARE 02:28 | DX: I87.311 Chronic venous hypertension (idiopathic) with ulcer of right lower extremity (principal); L97.218 Non-pressure chronic ulcer of right calf with other specified severity; I50.30 Unspecified diastolic (congestive) heart failure; E78.5 Hyperlipidemia, unspecified; E03.9 Hypothyroidism, unspecified; G80.9 Cerebral palsy, unspecified; F41.9 Anxiety disorder, unspecified; E66.01 Morbid (severe) obesity due to excess calories; Z68.42 Body mass index [BMI] 45.0-49.9, adult ==

== ENCOUNTER → 2018-10-23 | Outpatient (CLI) | payer MEDICARE ==
[~2018-10-23] MED LIST changes: +ANUSOL-HC25 MG R; +PYRIDIUM100 MG PO; +SEPTDS PO
== END | disposition home or self-care (01) ==
LOC: US 10-14 10:00
DX: K80.20 Calculus of gallbladder without cholecystitis without obstruction (principal); K76.0 Fatty (change of) liver, not elsewhere classified; R16.0 Hepatomegaly, not elsewhere classified

== ENCOUNTER 2018-11-17 23:10 | Emergency (ER) | payer MEDICARE ==
[~2018-11-17] VITALS: Ht 154.9 cm; Wt 1083.2 kg
[~2018-11-17 23:10] MED LIST changes: -ANUSOL-HC25 MG R; -PYRIDIUM100 MG PO; -SEPTDS PO
[2018-11-18 00:38] LABS: BILIRUBIN NEGATIVE (NEGATIVE); BLOOD 3+ (NEGATIVE); CLARITY CLOUDY (CLEAR); COLOR YELLOW (YELLOW); GLUCOSE NEGATIVE (NEGATIVE); KETONE NEGATIVE (NEGATIVE); LEUKO ESTERASE TRACE (NEGATIVE); NITRITE POSITIVE (NEGATIVE); PH 6.5 (5.0-9.0); SPECIFIC GRAVITY 1.025 (1.005-1.030); UROBILINOGEN 0.2 E.U./dl (0.2-1.0)
[2018-11-18 00:49] LABS: BACTERIA 1+; RBC TNTC rbc/hpf (0-2)
[2018-11-18] MEDS ORDERED: SEPTDS PO (00:59)
[2018-11-18] MEDS ORDERED: ANUSOL-HC25 MG R (00:59)
[2018-11-18] MEDS ORDERED: PYRIDIUM100 MG PO (01:04)
== END 2018-11-18 01:22 | disposition home or self-care (01) ==
LOC: ED 23:10
PROVIDERS: Nurse Practitioner Family
DX: N39.0 Urinary tract infection, site not specified (principal); H66.92 Otitis media, unspecified, left ear; K64.4 Residual hemorrhoidal skin tags; I11.0 Hypertensive heart disease with heart failure; I50.9 Heart failure, unspecified; E66.01 Morbid (severe) obesity due to excess calories; E03.9 Hypothyroidism, unspecified; Z68.41 Body mass index [BMI] 40.0-44.9, adult; Z79.899 Other long term (current) drug therapy

== ENCOUNTER 2019-08-21 15:31 | Emergency (ER) | payer MEDICARE ==
[~2019-08-21] VITALS: Ht 154.9 cm; Wt 99.8 kg
[~2019-08-21 15:31] MED LIST changes: +ANUSOL-HC25 MG R; +PYRIDIUM100 MG PO; +SEPTDS PO
[2019-08-21 15:32] VITALS: BP 169/104
== END 2019-08-21 17:22 | disposition home or self-care (01) ==
LOC: ED 15:31
DX: S50.02XA Contusion of left elbow, initial encounter (principal); Z91.018 Allergy to other foods; Z91.011 Allergy to milk products; Z79.2 Long term (current) use of antibiotics; Z79.899 Other long term (current) drug therapy; X58.XXXA Exposure to other specified factors, initial encounter; Y93.89 Activity, other specified; Y92.89 Other specified places as the place of occurrence of the external cause; Y99.8 Other external cause status

== ENCOUNTER 2019-10-05 13:41 | Emergency (ER) | payer MEDICARE ==
[~2019-10-05] VITALS: Ht 154.9 cm; Wt 104.3 kg
[2019-10-05 17:17] LABS: BASO # 0.1 10*3/uL (0.0-0.1); BASO % 0.6 % (0.0-1.0); EOS # 0.3 10*3/uL (0.0-0.4); EOS % 2.7 % (1.0-4.0); HEMATOCRIT 42.4 % (37.0-47.0); LYMPH # 2.1 10*3/uL (1.3-4.4); MEAN CELL VOLUME 99.1 fl (81.0-99.0); MEAN CORPUSCULAR HGB 32.7 pg (27.0-31.0); MEAN PLATELET VOLUME 9.9 fl (9.6-12.3); MONO # 0.8 10*3/uL (0.1-1.0); MONO % 8.4 % (3.0-9.0); NEUT # 6.1 10*3/uL (2.3-7.9); NEUT % 65.1 % (47.0-73.0); PLATELET COUNT AUTOMATED 313 10*3/uL (130-400); RED BLOOD COUNT 4.28 10*6/uL (4.10-5.10); RED CELL DISTRI WIDTH 13.1 % (0-14.5); WHITE BLOOD COUNT 9.3 10*3/uL (4.8-10.8)
[2019-10-05 17:33] LABS: ALBUMIN 3.9 gm/dl (3.1-4.5); ALKALINE PHOSPHATASE 89 U/L (45-117); BUN 12 mg/dl (7-24); CHLORIDE 105 mmol/L (98-107); CREATININE 1.09 mg/dL (0.55-1.02); LIPASE 67 U/L (73-393); SGOT/AST 31 IU/L (3-35); SGPT/ALT 40 U/L (12-78); SODIUM 138 mmol/L (136-145); TOTAL PROTEIN 7.7 gm/dL (6.4-8.2)
[2019-10-05 17:54] LABS: BILIRUBIN NEGATIVE (NEGATIVE); BLOOD NEGATIVE (NEGATIVE); CLARITY SL CLOUDY (CLEAR); COLOR YELLOW (YELLOW); GLUCOSE NEGATIVE (NEGATIVE); KETONE NEGATIVE (NEGATIVE); PH 7.5 (5.0-9.0); SPECIFIC GRAVITY 1.015 (1.005-1.030)
[2019-10-05 17:55] LABS: EPITHELIAL CELLS 21-30; LEUKO ESTERASE NEGATIVE (NEGATIVE); MUCOUS 1+; NITRITE NEGATIVE (NEGATIVE); UROBILINOGEN 0.2 E.U./dl (0.2-1.0)
[2019-10-05] MEDS ORDERED: TESSALON PERLE100 M1 PO (18:13)
[2019-10-05] MEDS ORDERED: PREDNISONE20 M1 PO (18:13)
[2019-10-05] MEDS ORDERED: DOXYCYCLINE100 M3 PO (18:13)
[2019-10-05] MEDS ORDERED: PROVENTIL HFA6.7 GM INH (18:13)
[2019-10-05 18:17] VITALS: BP 142/72
== END 2019-10-05 18:10 | disposition home or self-care (01) ==
LOC: ED 13:41
PROVIDERS: Physician Assistant
DX: J18.9 Pneumonia, unspecified organism (principal); J45.909 Unspecified asthma, uncomplicated; Z88.8 Allergy status to other drugs, medicaments and biological substances; Z91.011 Allergy to milk products; Z79.2 Long term (current) use of antibiotics; Z79.899 Other long term (current) drug therapy

== ENCOUNTER 2019-11-12 14:51 | Emergency (ER) | payer MEDICARE ==
[~2019-11-12] VITALS: Ht 147.3 cm; Wt 108.9 kg
[~2019-11-12 14:51] MED LIST changes: +DOXYCYCLINE100 M3 PO; +PREDNISONE20 M1 PO; +PROVENTIL HFA6.7 GM INH; +TESSALON PERLE100 M1 PO
[2019-11-12 15:00] VITALS: BP 142/85
[2019-11-12 16:45] LABS: BASO % 0.4 % (0.0-1.0); EOS # 0.1 10*3/uL (0.0-0.4); EOS % 0.8 % (1.0-4.0); HEMATOCRIT 42.2 % (37.0-47.0); HEMOGLOBIN 14.1 g/dl (12.0-16.0); LYMPH # 0.9 10*3/uL (1.3-4.4); LYMPH % 10.8 % (27.0-41.0); MEAN CORPUSCULAR HGB 32.4 pg (27.0-31.0); MEAN CORPUSCULAR HGB CONC 33.4 g/dl (33.0-37.0); MEAN PLATELET VOLUME 9.8 fl (9.6-12.3); MONO # 0.5 10*3/uL (0.1-1.0); MONO % 5.8 % (3.0-9.0); NEUT # 6.4 10*3/uL (2.3-7.9); NEUT % 81.8 % (47.0-73.0); PLATELET COUNT AUTOMATED 286 10*3/uL (130-400); RED BLOOD COUNT 4.35 10*6/uL (4.10-5.10); RED CELL DISTRI WIDTH 12.6 % (0-14.5); WHITE BLOOD COUNT 7.9 10*3/uL (4.8-10.8)
[2019-11-12 16:57] LABS: ACT PARTIAL THROMBO TIME 25.9 SECONDS (20.0-32.1)
[2019-11-12 17:06] LABS: BUN 14 mg/dl (7-24); CHLORIDE 109 mmol/L (98-107); CREATININE 1.04 mg/dL (0.55-1.02); POTASSIUM 4.1 mmol/L (3.5-5.1); SODIUM 142 mmol/L (136-145)
[2019-11-12 17:14] LABS: TROPONIN I < 0.015 ng/ml (<0.045)
[2019-11-12] MEDS ORDERED: PREDNISONE50 MG PO (18:33)
== END 2019-11-12 19:07 | disposition home or self-care (01) ==
LOC: ED 14:51
PROVIDERS: Emergency Medicine
DX: R05 Cough (principal); R06.02 Shortness of breath; M79.89 Other specified soft tissue disorders; E66.01 Morbid (severe) obesity due to excess calories; E03.9 Hypothyroidism, unspecified; I11.0 Hypertensive heart disease with heart failure; I50.30 Unspecified diastolic (congestive) heart failure; J45.909 Unspecified asthma, uncomplicated; Z68.41 Body mass index [BMI] 40.0-44.9, adult; Z88.8 Allergy status to other drugs, medicaments and biological substances; Z79.899 Other long term (current) drug therapy

== ENCOUNTER 2020-02-12 06:33 | Emergency (ER) | payer MEDICARE ==
[~2020-02-12] VITALS: Ht 154.9 cm; Wt 104.3 kg
[~2020-02-12 06:33] MED LIST changes: +PREDNISONE50 MG PO
[2020-02-12 06:59] VITALS: BP 102/57
[2020-02-12 07:15] LABS: HEMATOCRIT 36.3 % (37.0-47.0); MEAN CELL VOLUME 98.9 fl (81.0-99.0); MEAN CORPUSCULAR HGB 33.5 pg (27.0-31.0); MEAN CORPUSCULAR HGB CONC 33.9 g/dl (33.0-37.0); MEAN PLATELET VOLUME 9.4 fl (9.6-12.3); PLATELET COUNT AUTOMATED 418 10*3/uL (130-400); RED BLOOD COUNT 3.67 10*6/uL (4.10-5.10); RED CELL DISTRI WIDTH 12.7 % (0-14.5); WHITE BLOOD COUNT 25.7 10*3/uL (4.8-10.8)
[2020-02-12 07:24] LABS: ACT PARTIAL THROMBO TIME 22.9 SECONDS (20.0-32.1)
[2020-02-12 07:28] LABS: ALBUMIN 3.4 gm/dl (3.1-4.5); ALKALINE PHOSPHATASE 69 U/L (45-117); BUN 13 mg/dl (7-24); CHLORIDE 108 mmol/L (98-107); CREATININE 1.32 mg/dL (0.55-1.02); POTASSIUM 3.9 mmol/L (3.5-5.1); SGOT/AST 22 IU/L (3-35); SGPT/ALT 31 U/L (12-78); SODIUM 138 mmol/L (136-145); TOTAL PROTEIN 6.7 gm/dL (6.4-8.2)
[2020-02-12 07:30] LABS: BETA-HCG, QUANT < 1.0 mIU/mL (1-3)
[2020-02-12 07:34] LABS: TOTAL CELLS COUNTED 100 #CELLS
[2020-02-12 07:35] LABS: PLATELET SUFFICIENCY NORMAL (NORMAL)
[2020-02-12 09:08] LABS: BACTERIA 4+; BILIRUBIN NEGATIVE (NEGATIVE); BLOOD 3+ (NEGATIVE); CLARITY TURBID (CLEAR); COLOR RED (YELLOW); GLUCOSE NEGATIVE (NEGATIVE); KETONE 1+ (NEGATIVE); LEUKO ESTERASE NEGATIVE (NEGATIVE); NITRITE NEGATIVE (NEGATIVE); RBC TNTC rbc/hpf (0-2); UROBILINOGEN 0.2 E.U./dl (0.2-1.0)
[2020-02-12] MEDS ORDERED: PROVERA10 MG PO (09:21)
[2020-02-12] MEDS ORDERED: ZOFRAN4 MG PO (09:24)
== END 2020-02-12 11:45 | disposition home or self-care (01) ==
LOC: ED 06:33
PROVIDERS: Emergency Medicine
DX: N92.0 Excessive and frequent menstruation with regular cycle (principal); S06.0X9A Concussion with loss of consciousness of unspecified duration, initial encounter; F41.9 Anxiety disorder, unspecified; F32.9 Major depressive disorder, single episode, unspecified; J45.909 Unspecified asthma, uncomplicated; Z88.8 Allergy status to other drugs, medicaments and biological substances; Z79.899 Other long term (current) drug therapy; Z79.2 Long term (current) use of antibiotics; X58.XXXA Exposure to other specified factors, initial encounter; Y93.89 Activity, other specified; Y92.89 Other specified places as the place of occurrence of the external cause; Y99.8 Other external cause status

== ENCOUNTER → 2020-06-17 | Outpatient (CLI) | payer MEDICARE | END | disposition home or self-care (01) | LOC: COVID19 00:18 | PROVIDERS: ATTEND Nurse Practitioner Family | DX: R05 Cough (principal); R09.81 Nasal congestion; R53.83 Other fatigue; Z20.828 Contact with and (suspected) exposure to other viral communicable diseases ==

== ENCOUNTER 2020-07-29 16:16 | Emergency (ER) | payer MEDICARE ==
[~2020-07-29] VITALS: Ht 154.9 cm; Wt 106.1 kg
[~2020-07-29 16:16] MED LIST changes: +PROVERA10 MG PO; +ZOFRAN4 MG PO
[2020-07-29 16:46] LABS: BILIRUBIN Negative (Negative); BLOOD Negative (Negative); CLARITY Cloudy (Clear); COLOR Yellow (Yellow); GLUCOSE Negative (Negative); KETONE Negative (Negative); LEUKO ESTERASE 1+ (Negative); NITRITE Negative (Negative); PH 7.5 (4.5-8.0)
[2020-07-29 17:00] LABS: BACTERIA TRACE
[2020-07-29 17:17] VITALS: BP 153/76
[2020-07-29 18:07] LABS: BASO % 0.2 % (0.0-1.0); EOS % 0.5 % (1.0-4.0); HEMATOCRIT 35.1 % (37.0-47.0); LYMPH # 1.2 10*3/uL (1.3-4.4); LYMPH % 26.7 % (27.0-41.0); MEAN CELL VOLUME 84.8 fl (81.0-99.0); MEAN CORPUSCULAR HGB 25.8 pg (27.0-31.0); MEAN CORPUSCULAR HGB CONC 30.5 g/dl (33.0-37.0); MEAN PLATELET VOLUME 9.5 fl (9.6-12.3); MONO # 0.4 10*3/uL (0.1-1.0); MONO % 9.7 % (3.0-9.0); NEUT # 2.7 10*3/uL (2.3-7.9); NEUT % 62.9 % (47.0-73.0); PLATELET COUNT AUTOMATED 319 10*3/uL (130-400); RED BLOOD COUNT 4.14 10*6/uL (4.10-5.10); RED CELL DISTRI WIDTH 15.5 % (0-14.5); WHITE BLOOD COUNT 4.3 10*3/uL (4.8-10.8)
[2020-07-29 18:22] LABS: ALBUMIN 3.5 gm/dl (3.1-4.5); ALKALINE PHOSPHATASE 77 U/L (45-117); BUN 9 mg/dl (7-24); CHLORIDE 105 mmol/L (98-107); CREATININE 0.85 mg/dL (0.55-1.02); POTASSIUM 3.2 mmol/L (3.5-5.1); SGOT/AST 29 IU/L (3-35); SGPT/ALT 26 U/L (12-78); SODIUM 139 mmol/L (136-145); TOTAL PROTEIN 7.3 gm/dL (6.4-8.2)
[2020-07-29] MEDS ORDERED: PREDNISONE20 M1 PO (18:29)
[2020-07-29] MEDS ORDERED: TESSALON PERLE100 MG PO (18:29)
== END 2020-07-29 18:36 | disposition home or self-care (01) ==
LOC: ED 16:16
PROVIDERS: Emergency Medicine
DX: U07.1 COVID-19 (principal); J45.909 Unspecified asthma, uncomplicated; I11.0 Hypertensive heart disease with heart failure; I50.30 Unspecified diastolic (congestive) heart failure; F41.9 Anxiety disorder, unspecified; E03.9 Hypothyroidism, unspecified; Z79.899 Other long term (current) drug therapy

== ENCOUNTER 2020-11-01 10:16 | Observation (INO) | payer MEDICARE ==
[~2020-11-01] VITALS: Ht 167.6 cm; Wt 106.3 kg
[~2020-11-01 10:16] MED LIST changes: +TESSALON PERLE100 MG PO
[2020-11-01 10:22] VITALS: BP 161/74
[2020-11-01 10:56] LABS: BASO # 0.1 10*3/uL (0.0-0.1); BASO % 0.7 % (0.0-1.0); EOS # 0.2 10*3/uL (0.0-0.4); EOS % 2.1 % (1.0-4.0); HEMATOCRIT 36.3 % (37.0-47.0); LYMPH # 2.6 10*3/uL (1.3-4.4); MEAN CELL VOLUME 83.3 fl (81.0-99.0); MEAN CORPUSCULAR HGB 26.8 pg (27.0-31.0); MEAN CORPUSCULAR HGB CONC 32.2 g/dl (33.0-37.0); MEAN PLATELET VOLUME 9.5 fl (9.6-12.3); MONO # 0.9 10*3/uL (0.1-1.0); MONO % 11.3 % (3.0-9.0); NEUT # 4.5 10*3/uL (2.3-7.9); NEUT % 54.8 % (47.0-73.0); PLATELET COUNT AUTOMATED 418 10*3/uL (130-400); RED BLOOD COUNT 4.36 10*6/uL (4.10-5.10); RED CELL DISTRI WIDTH 16.9 % (0-14.5); WHITE BLOOD COUNT 8.2 10*3/uL (4.8-10.8)
[2020-11-01 11:02] VITALS: BP 152/60
[2020-11-01 11:06] LABS: ACT PARTIAL THROMBO TIME 25.9 SECONDS (20.0-32.1)
[2020-11-01 11:12] LABS: ALBUMIN 3.9 gm/dl (3.1-4.5); ALKALINE PHOSPHATASE 70 U/L (45-117); BETA-HCG, QUANT < 1.0 mIU/mL (1-3); BUN 17 mg/dl (7-24); CHLORIDE 109 mmol/L (98-107); CREATININE 1.28 mg/dL (0.55-1.02); LIPASE 92 U/L (73-393); POTASSIUM 3.1 mmol/L (3.5-5.1); SGOT/AST 21 IU/L (3-35); SGPT/ALT 26 U/L (12-78); SODIUM 142 mmol/L (136-145); TOTAL PROTEIN 7.5 gm/dL (6.4-8.2); TROPONIN I < 0.015 ng/ml (<0.045)
[2020-11-01 12:22] LABS: BILIRUBIN Negative (Negative); BLOOD Trace-Lysed (Negative); CLARITY Turbid (Clear); COLOR Yellow (Yellow); GLUCOSE Negative (Negative); KETONE Trace (Negative); LEUKO ESTERASE 3+ (Negative); NITRITE Positive (Negative); SPECIFIC GRAVITY 1.025 (1.001-1.030)
[2020-11-01 12:46] LABS: BACTERIA 3+; WBC TNTC wbc/hpf (0-5)
[2020-11-01 13:00] VITALS: BP 121/69
[2020-11-01 15:03] VITALS: BP 123/68
[2020-11-01 16:42] VITALS: BP 127/71
[2020-11-01] MEDS ORDERED: EUTHYROX112 MCG PO (17:18)
[2020-11-01 20:00] VITALS: BP 141/81
[2020-11-02] VITALS (12 sets, daily range): BP systolic 130–192; BP diastolic 69–98
[2020-11-02] MEDS ORDERED: MELATONIN5 M7 PO (00:18)
[2020-11-02] MEDS ORDERED: OMEPRAZOLE MAGN20 MG PO (00:46)
[2020-11-02] MEDS ORDERED: LAMICTAL25 MG PO (00:50)
[2020-11-02 06:26] LABS: ALBUMIN 3.5 gm/dl (3.1-4.5); BUN 12 mg/dl (7-24); CHLORIDE 110 mmol/L (98-107); CHOLESTEROL 169 mg/dL (<200); CREATININE 1.01 mg/dL (0.55-1.02); HDL CHOLESTEROL 46 mg/dl (40-60); LDL CHOLESTEROL 97 mg/dL (9-159); POTASSIUM 3.3 mmol/L (3.5-5.1); SGOT/AST 13 IU/L (3-35); SGPT/ALT 23 U/L (12-78); SODIUM 141 mmol/L (136-145); TRIGLYCERIDES 132 mg/dl (<150); VLDL CHOLESTEROL 26 mg/dL (6-40)
[2020-11-02 06:37] LABS: ALKALINE PHOSPHATASE 61 U/L (45-117); FREE T4 1.26 ng/dl (0.76-1.46); TOTAL PROTEIN 6.8 gm/dL (6.4-8.2)
[2020-11-02 06:49] LABS: BASO % 0.6 % (0.0-1.0); EOS # 0.3 10*3/uL (0.0-0.4); EOS % 4.3 % (1.0-4.0); HEMATOCRIT 33.9 % (37.0-47.0); LYMPH # 2.3 10*3/uL (1.3-4.4); LYMPH % 35.8 % (27.0-41.0); MEAN CORPUSCULAR HGB 26.8 pg (27.0-31.0); MEAN CORPUSCULAR HGB CONC 30.7 g/dl (33.0-37.0); MEAN PLATELET VOLUME 10.2 fl (9.6-12.3); MONO # 0.6 10*3/uL (0.1-1.0); MONO % 9.3 % (3.0-9.0); NEUT # 3.1 10*3/uL (2.3-7.9); NEUT % 49.7 % (47.0-73.0); PLATELET COUNT AUTOMATED 325 10*3/uL (130-400); RED BLOOD COUNT 3.88 10*6/uL (4.10-5.10); RED CELL DISTRI WIDTH 17.1 % (0-14.5); WHITE BLOOD COUNT 6.3 10*3/uL (4.8-10.8)
[2020-11-02 06:50] LABS: MEAN CELL VOLUME 87.4 fl (81.0-99.0)
[2020-11-03] VITALS: BP 135/71
[2020-11-03 08:00] VITALS: BP 167/81
[2020-11-03] MEDS ORDERED: FLAGYL500 MG PO (08:07)
[2020-11-03] MEDS ORDERED: CIPRO500 MG PO (08:07)
[2020-11-03] MEDS ORDERED: COLACE100 MG PO (08:07)
[2020-11-03] MEDS ORDERED: ZOFRAN4 MG PO (08:07)
[2020-11-03] MEDS ORDERED: HYDROCODONE-AC1 EAC1 PO (11:27)
[2020-11-03 12:00] VITALS: BP 165/78
[2020-11-03 16:00] VITALS: BP 166/82
== END 2020-11-03 17:48 | disposition home or self-care (01) ==
LOC: ED 10:16 → EDHOLD 13:11 → 4E 16:33
PROVIDERS: Emergency Medicine; Registered Nurse; ADMIT Internal Medicine; ATTEND Internal Medicine
DX: K81.0 Acute cholecystitis (principal); N30.01 Acute cystitis with hematuria; N17.0 Acute kidney failure with tubular necrosis; E87.6 Hypokalemia; E87.2 Acidosis; I11.0 Hypertensive heart disease with heart failure; I50.32 Chronic diastolic (congestive) heart failure; E78.5 Hyperlipidemia, unspecified; E03.9 Hypothyroidism, unspecified; G80.9 Cerebral palsy, unspecified; E66.01 Morbid (severe) obesity due to excess calories; A41.9 Sepsis, unspecified organism; F41.9 Anxiety disorder, unspecified; J40 Bronchitis, not specified as acute or chronic; Z98.890 Other specified postprocedural states; Z72.89 Other problems related to lifestyle; Z68.41 Body mass index [BMI] 40.0-44.9, adult

== ENCOUNTER 2021-08-06 18:10 | Emergency (ER) | payer MEDICARE ==
[~2021-08-06] VITALS: Wt 108.9 kg
[~2021-08-06 18:10] MED LIST changes: +CIPRO500 MG PO; +COLACE100 MG PO; +EUTHYROX112 MCG PO; +FLAGYL500 MG PO; +HYDROCODONE-AC1 EAC1 PO; +LAMICTAL25 MG PO; +MELATONIN5 M7 PO; +OMEPRAZOLE MAGN20 MG PO
[2021-08-06 18:14] VITALS: BP 169/78
[2021-08-06 18:38] LABS: BILIRUBIN 1+ (Negative); BLOOD Negative (Negative); CLARITY Cloudy (Clear); COLOR Dark Yellow (Yellow); GLUCOSE Negative (Negative); KETONE Trace (Negative); LEUKO ESTERASE Negative (Negative); NITRITE Negative (Negative); SPECIFIC GRAVITY 1.025 (1.001-1.030)
[2021-08-06 18:57] LABS: BACTERIA 1+; EPITHELIAL CELLS 21-30
[2021-08-06 18:58] LABS: BASO # 0.1 10*3/uL (0.0-0.1); BASO % 0.8 % (0.0-1.0); EOS # 0.3 10*3/uL (0.0-0.4); EOS % 3.2 % (1.0-4.0); HEMATOCRIT 41.5 % (37.0-47.0); LYMPH # 2.1 10*3/uL (1.3-4.4); LYMPH % 21.7 % (27.0-41.0); MEAN CORPUSCULAR HGB 28.7 pg (27.0-31.0); MEAN CORPUSCULAR HGB CONC 31.6 g/dl (33.0-37.0); MEAN PLATELET VOLUME 10.3 fl (9.6-12.3); MONO # 0.8 10*3/uL (0.1-1.0); MONO % 8.4 % (3.0-9.0); NEUT # 6.3 10*3/uL (2.3-7.9); NEUT % 65.7 % (47.0-73.0); PLATELET COUNT AUTOMATED 464 10*3/uL (130-400); RED BLOOD COUNT 4.56 10*6/uL (4.10-5.10); RED CELL DISTRI WIDTH 13.2 % (0-14.5); WHITE BLOOD COUNT 9.5 10*3/uL (4.8-10.8)
[2021-08-06 19:17] LABS: ALBUMIN 4.1 gm/dl (3.1-4.5); BUN 16 mg/dl (7-24); CHLORIDE 106 mmol/L (98-107); CREATININE 1.16 mg/dL (0.55-1.02); POTASSIUM 4.2 mmol/L (3.5-5.1); SGOT/AST 34 IU/L (3-35); SGPT/ALT 44 U/L (12-78); SODIUM 139 mmol/L (136-145)
[2021-08-06 19:32] LABS: ALKALINE PHOSPHATASE 78 U/L (45-117)
[2021-08-06 19:35] LABS: ETHYL ALCOHOL < 3.0 mg/dl (<3)
== END 2021-08-06 23:24 | disposition home or self-care (01) ==
LOC: ED 18:10
PROVIDERS: Emergency Medicine
DX: L27.1 Localized skin eruption due to drugs and medicaments taken internally (principal); T36.95XA Adverse effect of unspecified systemic antibiotic, initial encounter; I13.0 Hypertensive heart and chronic kidney disease with heart failure and stage 1 through stage 4 chronic kidney disease, or unspecified chronic kidney disease; N18.31 Chronic kidney disease, stage 3a; I50.30 Unspecified diastolic (congestive) heart failure; N83.201 Unspecified ovarian cyst, right side; E03.9 Hypothyroidism, unspecified; E66.01 Morbid (severe) obesity due to excess calories; Z79.899 Other long term (current) drug therapy; Y92.89 Other specified places as the place of occurrence of the external cause

== ENCOUNTER → 2021-12-15 | Outpatient (CLI) | payer MEDICARE | END | disposition home or self-care (01) | LOC: MRI 11:00 | PROVIDERS: ATTEND Nurse Practitioner Family | DX: S46.212A Strain of muscle, fascia and tendon of other parts of biceps, left arm, initial encounter (principal); R60.0 Localized edema; M75.22 Bicipital tendinitis, left shoulder; M79.89 Other specified soft tissue disorders; M77.02 Medial epicondylitis, left elbow; X58.XXXA Exposure to other specified factors, initial encounter; Y93.89 Activity, other specified; Y92.89 Other specified places as the place of occurrence of the external cause; Y99.8 Other external cause status ==

== ENCOUNTER → 2022-09-10 | Outpatient (CLI) | payer MEDICARE ==
[2022-09-10 13:19] LABS: BASO # 0.1 10*3/uL (0.0-0.1); BASO % 0.7 % (0.0-1.0); EOS # 0.4 10*3/uL (0.0-0.4); EOS % 3.3 % (1.0-4.0); HEMATOCRIT 40.9 % (37.0-47.0); LYMPH # 2.3 10*3/uL (1.3-4.4); LYMPH % 21.5 % (27.0-41.0); MEAN CELL VOLUME 92.7 fl (81.0-99.0); MEAN CORPUSCULAR HGB 29.9 pg (27.0-31.0); MEAN CORPUSCULAR HGB CONC 32.3 g/dl (33.0-37.0); MEAN PLATELET VOLUME 10.4 fl (9.6-12.3); MONO # 0.7 10*3/uL (0.1-1.0); MONO % 6.4 % (3.0-9.0); NEUT # 7.3 10*3/uL (2.3-7.9); NEUT % 67.8 % (47.0-73.0); PLATELET COUNT AUTOMATED 422 10*3/uL (130-400); RED BLOOD COUNT 4.41 10*6/uL (4.10-5.10); RED CELL DISTRI WIDTH 13.8 % (0-14.5); RETICULOCYTE % 1.35 % (0.50-2.50); WHITE BLOOD COUNT 10.7 10*3/uL (4.8-10.8)
[2022-09-10 13:23] LABS: BILIRUBIN Negative (Negative); BLOOD Negative (Negative); CLARITY Cloudy (Clear); COLOR Yellow (Yellow); GLUCOSE Negative (Negative); KETONE Negative (Negative); LEUKO ESTERASE Trace (Negative); NITRITE Negative (Negative); SPECIFIC GRAVITY 1.015 (1.001-1.030)
[2022-09-10 13:36] LABS: ALKALINE PHOSPHATASE 83 U/L (46-116); BUN 10 mg/dl (9-23); CHLORIDE 105 mmol/L (98-107); CHOLESTEROL 200 mg/dL (<200); GAMMA GLUTAMYL TRANSPEPTIDASE 22 U/L (0-73); LDL CHOLESTEROL 112 mg/dL (9-159); POTASSIUM 4.2 mmol/L (3.4-5.1); SGPT/ALT 22 U/L (10-49); T3 UPTAKE 18.8 % (22.4-36.7); THYROID STIM HORMONE (HS) 7.305 uIU/ml (0.550-4.780); THYROXINE (T4) TOTAL 11.8 ug/dl (4.5-10.9); TOTAL PROTEIN 7.5 gm/dL (6.0-8.0); TRIGLYCERIDES 199 mg/dl (<150)
[2022-09-10 13:41] LABS: VITAMIN D, 25-HYDROXY 8.5 ng/mL (30-100)
[2022-09-10 13:48] LABS: MUCOUS TRACE
== END | disposition home or self-care (01) ==
LOC: LAB 12:05
PROVIDERS: ATTEND Family Medicine
DX: E78.5 Hyperlipidemia, unspecified (principal); E55.9 Vitamin D deficiency, unspecified; R79.89 Other specified abnormal findings of blood chemistry; R53.83 Other fatigue; R74.8 Abnormal levels of other serum enzymes

== ENCOUNTER → 2023-09-23 | Outpatient (CLI) | payer MEDICARE ==
[2023-09-23 13:05] LABS: BASO # 0.1 10*3/uL (0.0-0.1); BASO % 0.7 % (0.0-1.0); EOS # 0.4 10*3/uL (0.0-0.4); EOS % 3.4 % (1.0-4.0); HEMATOCRIT 40.5 % (37.0-47.0); LYMPH # 2.3 10*3/uL (1.3-4.4); MEAN CELL VOLUME 93.8 fl (81.0-99.0); MEAN CORPUSCULAR HGB 30.3 pg (27.0-31.0); MEAN CORPUSCULAR HGB CONC 32.3 g/dl (33.0-37.0); MEAN PLATELET VOLUME 10.2 fl (9.6-12.3); MONO # 0.8 10*3/uL (0.1-1.0); MONO % 7.9 % (3.0-9.0); NEUT # 6.8 10*3/uL (2.3-7.9); NEUT % 65.7 % (47.0-73.0); PLATELET COUNT AUTOMATED 430 10*3/uL (130-400); RED BLOOD COUNT 4.32 10*6/uL (4.10-5.10); RED CELL DISTRI WIDTH 13.8 % (0-14.5); RETICULOCYTE % 1.71 % (0.50-2.50); WHITE BLOOD COUNT 10.4 10*3/uL (4.8-10.8)
[2023-09-23 13:12] LABS: BILIRUBIN Negative (Negative); BLOOD Negative (Negative); CLARITY Cloudy (Clear); COLOR Yellow (Yellow); GLUCOSE Negative (Negative); KETONE Negative (Negative); LEUKO ESTERASE Negative (Negative); NITRITE Negative (Negative); SPECIFIC GRAVITY 1.015 (1.001-1.030); UROBILINOGEN 0.2 E.U./dl (0.0-1.0)
[2023-09-23 13:28] LABS: BACTERIA 3+; EPITHELIAL CELLS 21-30; YEAST 2+
[2023-09-23 13:49] LABS: ALKALINE PHOSPHATASE 81 U/L (46-116); BUN 20 mg/dl (9-23); CHLORIDE 105 mmol/L (98-107); CHOLESTEROL 203 mg/dL (<200); GAMMA GLUTAMYL TRANSPEPTIDASE 22 U/L (0-73); LDL CHOLESTEROL 112 mg/dL (9-159); POTASSIUM 3.7 mmol/L (3.4-5.1); SGPT/ALT 20 U/L (5-49); T3 UPTAKE 26.6 % (22.4-36.7); THYROXINE (T4) TOTAL 11.6 ug/dl (4.5-10.9); TOTAL PROTEIN 7.3 gm/dL (6.0-8.0); TRIGLYCERIDES 191 mg/dl (<150); VITAMIN D, 25-HYDROXY 48.1 ng/mL (30-100)
== END | disposition home or self-care (01) ==
LOC: LAB 12:24
PROVIDERS: ATTEND Family Medicine
DX: R79.89 Other specified abnormal findings of blood chemistry (principal); R53.83 Other fatigue; E78.5 Hyperlipidemia, unspecified; R74.8 Abnormal levels of other serum enzymes; E55.9 Vitamin D deficiency, unspecified